=== PATIENT | female | born 1980 | race Caucasian/White ===

== ENCOUNTER 2017-07-29 20:47 | Emergency (ER) | payer OTHER ==
--- NOTE | 2017-07-29 22:07 | RAD ---
ABDOMEN ONE VIEW 07/29/17 HISTORY: Abdominal pain. FINDINGS/IMPRESSION: There is fecal material in the colon. The bowel gas pattern is unremarkable. There is dextroscoliosis of the lumbar spine. No suspicious calcifications are seen. POS: [facility]
[2017-07-29 22:14] LABS: Bilirubin Negative (Negative); Blood, Urine Negative (Negative); Clarity CLEAR (Clear); Glucose, Urine (Dipstick) Negative (Negative); Leukocyte Negative (Negative); Nitrite Negative (Negative); Protein, Urine (Dipstick) Negative (Neg-Trace); Urobilinogen 0.2 mg/dL (0.2-1.0)
[2017-07-29 22:25] LABS: #Basophils 0.1 thou/uL (0.0-0.2); #Eosinphils 0.1 thou/uL (0.0-0.7); #Lymphocytes 2.5 thou/uL (1.20-3.40); #Monocytes 0.7 thou/uL (0.11-0.59); #Neutrophils 4.8 thou/uL (1.40-6.50); %Basophils 0.8 % (0.0-1.0); %Eosinophils 1.5 % (0.0-10.0); %Lymphocytes 30.3 % (21.0-51.0); %Monocytes 8.4 % (0.0-10.0); %Neutrophils 58.9 % (42.0-75.0); Mean Corpuscular HGB CONC 32.4 g/dL (32.0-36.0); Mean Corpuscular Hemoglobin 31.4 pg (27.0-31.0); Mean Corpuscular Volume 96.9 fl (81.0-99.0); Mean Platelet Volume 6.7 fL (7.4-10.4); Platelet Count 236 thou/uL (130-400); RBC Distribution Width 11.8 % (11.5-14.5); Red Blood Cell (RBC) Count 4.13 mill/uL (4.20-5.40); White Blood Cell (WBC) Count 8.1 thou/uL (4.8-10.8)
[2017-07-29] MEDS ORDERED: Pantoprazole 40 MG VIAL ONE (22:41)
[2017-07-29] MEDS ORDERED: Ondansetron HCl/PF 4 MG/2 ML Vial ONE (22:41)
[2017-07-29 22:49] LABS: ALT (SGPT) 12 U/L (8-55); AST (SGOT) 20 U/L (5-34); Albumin 4.4 g/dL (3.5-5.0); Alkaline Phosphatase 65 U/L (40-150); Anion Gap 15 mmol/L (10-20); BUN (Urea Nitrogen) 10 mg/dL (7.0-18.7); Bilirubin, Total 0.4 mg/dL (0.2-1.2); Calc. Creatinine Clearance 0 mL/min (70-130); Calcium 9.3 mg/dL (7.8-10.44); Carbon Dioxide 21 mmol/L (22-29); Chloride 105 mmol/L (98-107); Estimated GFR-MDRD Greater than 90; Globulin 2.6 g/dL (2.4-3.5); Glucose 91 mg/dL (70-105); Lipase 44 U/L (8-78); Potassium 3.7 mmol/L (3.5-5.1); Sodium 137 mmol/L (136-145)
[2017-07-29] MEDS ORDERED: Magnesium Citrate 300 ML BOT ONE (23:15)
== END 2017-07-29 23:35 | disposition home or self-care (01) ==
LOC: ERS 20:47
DX: K59.00 Constipation, unspecified (principal); F84.0 Autistic disorder; Z79.899 Other long term (current) drug therapy
CPT/HCPCS: 36415; 51701; 74018; 80053; 81003; 83690; 85025; 96374; 96375; C9113; J2405

== ENCOUNTER 2018-02-07 10:06 | Emergency (ER) | payer OTHER ==
[2018-02-07 11:47] LABS: Bilirubin Negative (Negative); Blood, Urine Negative (Negative); Clarity CLEAR (Clear); Glucose, Urine (Dipstick) Negative (Negative); Leukocyte Negative (Negative); Nitrite Negative (Negative); Protein, Urine (Dipstick) Negative (Neg-Trace); Specific Gravity, Urine 1.024 (1.002-1.036); Urobilinogen 0.2 mg/dL (0.2-1.0); pH, Urine 6.5 (5.0-9.0)
== END 2018-02-07 12:56 | disposition home or self-care (01) ==
LOC: ERS 10:06
DX: Z13.89 Encounter for screening for other disorder (principal)
CPT/HCPCS: 51701; 81003; 87086; A4353

== ENCOUNTER 2018-06-20 06:39 | Outpatient (CLI) | payer OTHER ==
[2018-06-20 15:55] LABS: #Basophils 0.1 thou/uL (0.0-0.2); #Eosinphils 0.1 thou/uL (0.0-0.7); #Lymphocytes 2.3 thou/uL (1.20-3.40); #Monocytes 0.5 thou/uL (0.11-0.59); %Basophils 1.3 % (0.0-1.0); %Eosinophils 2.1 % (0.0-10.0); %Monocytes 8.3 % (0.0-10.0); %Neutrophils 50.3 % (42.0-75.0); Mean Corpuscular Hemoglobin 30.3 pg (27.0-31.0); Mean Corpuscular Volume 97.8 fL (78.0-98.0); Mean Platelet Volume 7.4 fL (7.4-10.4); Platelet Count 253 thou/uL (130-400); RBC Distribution Width 11.7 % (11.5-14.5); Red Blood Cell (RBC) Count 4.29 mill/uL (4.20-5.40)
[2018-06-20 16:20] LABS: ALT (SGPT) 13 U/L (8-55); AST (SGOT) 21 U/L (5-34); Albumin 4.1 g/dL (3.5-5.0); Alkaline Phosphatase 70 U/L (40-150); Anion Gap 15 mmol/L (10-20); BUN (Urea Nitrogen) 15 mg/dL (7.0-18.7); Bilirubin, Total 0.2 mg/dL (0.2-1.2); Calc. Creatinine Clearance 0 mL/min (70-130); Calcium 9.2 mg/dL (7.8-10.44); Carbon Dioxide 19 mmol/L (22-29); Chloride 109 mmol/L (98-107); Estimated GFR-MDRD Greater than 90; Globulin 2.8 g/dL (2.4-3.5); Glucose 87 mg/dL (70-105); Potassium 4.4 mmol/L (3.5-5.1); Protein, Total 6.9 g/dL (6.0-8.3); Sodium 139 mmol/L (136-145)
== END 2018-06-20 06:40 | disposition home or self-care (01) ==
LOC: LABBT 06:39
PROVIDERS: ATTEND Specialist
DX: Z01.812 Encounter for preprocedural laboratory examination (principal); K80.20 Calculus of gallbladder without cholecystitis without obstruction
CPT/HCPCS: 80053; 85025

== ENCOUNTER 2018-06-22 07:52 | Day surgery (SDC) | payer OTHER ==
--- NOTE | 2018-06-19 11:31 | HP ---
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 Parents believes it is due to abdominal pain. The patient has been seen at [facility]. The patient has a history of reflux. She has undergone ultrasound, revealed normal biliary tree and gallbladder sludge. HIDA scan was obtained and normal at [facility] on 04/30/2018. There are no laboratory results accompanying the records submitted. The patient does have a history of Rett syndrome, abdominal pain, GERD, constipation, dysphagia, thoracogenic scoliosis, and seizures. Plan is for laparoscopic video cholecystectomy hoping to resolve the patient's episodic discomfort. PAST MEDICAL HISTORY: Abdominal pain, Rett syndrome, GERD, constipation, dysphagia, thoracogenic scoliosis, and seizure disorder. The patient lives with her mother and father. 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 PAST SURGICAL HISTORY: Noncontributory except for wisdom teeth under sedation in the past. MEDICATIONS: 1. MiraLAX. 2. Calcium. 3. Multivitamins. 4. Ascorbic acid. 5. Nystatin. 6. Protonix. 7. Temazepam 7.5 mg at bedtime. 8. Vitamin D supplements. ALLERGIES: DIPHENHYDRAMINE, ADVERSE REACTIONS; HYDROCODONE CAUSES INSOMNIA. PHYSICAL EXAMINATION: VITAL SIGNS: 92 pounds, 4 feet 10 inches, BMI 19, blood pressure 105/75, heart rate 72, and temperature 99.7. GENERAL: The patient is in my exam room pacing about at times. LUNGS: Clear to auscultation. CARDIAC: Regular rate and rhythm without murmur or gallop. ABDOMEN: Soft, nontender, flat, nondistended. EYES: Sclerae nonicteric. SKIN: Nonjaundiced. EXTREMITIES: Unremarkable. No ankle edema. ASSESSMENT/PLAN: Symptomatic cholelithiasis. We would plan laparoscopic cholecystectomy as an outpatient. I think it would be better to get her home in her own environment. They live in [place]. Risk of infection, bleeding, and reoperation were explained. They consented. Job ID: [id number]
[2018-06-20 18:47] VITALS: BMI 19.2
[2018-06-22] MEDS ORDERED: Levofloxacin 500 mg/D5W 100 ml Premix Bag ONE (08:26)
[2018-06-22] MEDS ORDERED: Ketorolac Tromethamine 30 MG/ML VIAL ONE (08:27)
[2018-06-22] MEDS ORDERED: Bupivacaine HCl 0.5%/Epinephrine 1:200,000/PF 30 ml Vial ONE (08:51)
[2018-06-22] MEDS ORDERED: Fentanyl 100 MCG/2 ML VIAL ONE ×2 (09:45→09:59)
[2018-06-22] MEDS ORDERED: Lidocaine 2% Jelly 5 ML TUBE ONE (09:59)
[2018-06-22] MEDS ORDERED: Midazolam HCl 2 mg/2 ml Vial ONE (09:59)
--- NOTE | 2018-06-22 11:23 | OP ---
DATE OF PROCEDURE: 06/22/2018 PREOPERATIVE DIAGNOSES: Rett syndrome, cholecystitis, and cholelithiasis. POSTOPERATIVE DIAGNOSES: Rett syndrome, cholecystitis, and cholelithiasis. PROCEDURE PERFORMED: Laparoscopic video cholecystectomy. ANESTHESIA: General, 0.5% Marcaine with epinephrine 30 mL, total volume used. DESCRIPTION OF PROCEDURE: The patient was taken to the operating room, where under general anesthesia, abdomen was prepared with ChloraPrep and draped in routine fashion. Local anesthetic was infiltrated in the skin and subcutaneous tissue about each port site. Infraumbilical incision was made, pneumoperitoneum to 15 mmHg obtained with a Veress needle, replaced with a 5 port, laparoscope inserted. Right subxiphoid incision was made and 11 port placed. Right subcostal incision was made, midclavicular and anterior axillary lines and the 5 ports placed. Liver appeared to be normal. Gallbladder appeared to be normal externally. Fundus of the gallbladder was grasped at the cephalad. Infundibulum grasped and reflected laterally. Cystic artery and duct dissected free. Critical view obtained. Cystic artery and duct dissected free, doubly clipped and divided. Gallbladder dissected free from liver bed obtaining good hemostasis prior to division of the final attachments. Gallbladder and contents removed, submitted to Pathology. Good hemostasis ensured with cautery. Irrigant and pneumoperitoneum evacuated. All instruments were removed. All skin incisions were approximated with interrupted subdermal 4-0 Monocryl and Seama glue applied. Job ID: [id number]
== END 2018-06-22 12:15 | disposition home or self-care (01) ==
LOC: SDC 07:52
PROVIDERS: ATTEND Specialist
PROC: 0FT44ZZ Resection of Gallbladder, Percutaneous Endoscopic Approach (ICD-10-PCS; principal; 2018-06-22)
DX: K80.10 Calculus of gallbladder with chronic cholecystitis without obstruction (principal); F84.2 Rett's syndrome; K21.9 Gastro-esophageal reflux disease without esophagitis; K59.00 Constipation, unspecified; M41.30 Thoracogenic scoliosis, site unspecified; G40.909 Epilepsy, unspecified, not intractable, without status epilepticus; Z79.899 Other long term (current) drug therapy; Z88.5 Allergy status to narcotic agent; Z88.8 Allergy status to other drugs, medicaments and biological substances
CPT/HCPCS: 88304; J0131; J0670; J1610; J1885; J1956; J2250; J3010

== ENCOUNTER 2022-04-25 14:48 | Emergency (ER) | payer MEDICAID, OTHER, SELFPAY ==
[2022-04-25] MEDS ORDERED: LORazepam 2 MG/ML SYR.(CARPUJECT) ONE ×2 (18:10→22:43)
[2022-04-25 18:40] LABS: #Eosinphils 0.2 thou/uL (0.0-0.7); #Lymphocytes 3.1 thou/uL (1.20-3.40); #Monocytes 0.6 thou/uL (0.11-0.59); #Neutrophils 2.9 thou/uL (1.40-6.50); %Basophils 0.7 % (0.0-1.0); %Lymphocytes 45.5 % (21.0-51.0); %Monocytes 8.1 % (0.0-10.0); %Neutrophils 42.7 % (42.0-75.0); Hemoglobin 13.1 g/dL (12.0-16.0); Mean Corpuscular HGB CONC 32.9 g/dL (32.0-36.0); Mean Corpuscular Hemoglobin 32.6 pg (27.0-31.0); Mean Corpuscular Volume 99.2 fl (78.0-98.0); Mean Platelet Volume 7.4 fL (7.4-10.4); Platelet Count 232 10x3/uL (130-400); RBC Distribution Width 11.7 % (11.5-14.5); Red Blood Cell (RBC) Count 4.02 mill/uL (4.20-5.40); White Blood Cell (WBC) Count 6.9 10x3/uL (4.8-10.8)
[2022-04-25 18:48] LABS: BHCG - Serum Negative (NEGATIVE); Pregs Control Background? CLEAR/WHITE (CLR/WHITE); Pregs Control Bar Appear? YES (CONTROL BAR)
[2022-04-25 19:03] LABS: ALT (SGPT) 17 U/L (8-55); AST (SGOT) 18 U/L (5-34); Albumin 4.3 g/dL (3.5-5.0); Alkaline Phosphatase 56 U/L (40-110); Anion Gap 10 mmol/L (10-20); BUN (Urea Nitrogen) 16 mg/dL (7.0-18.7); Bilirubin, Total 0.4 mg/dL (0.2-1.2); Calc. Creatinine Clearance 0 mL/min (70-130); Calcium 9.1 mg/dL (7.8-10.44); Carbon Dioxide 26 mmol/L (22-29); Chloride 110 mmol/L (98-107); Estimated GFR 112; Globulin 2.5 g/dL (2.4-3.5); Glucose 90 mg/dL (70-105); Potassium 4.4 mmol/L (3.5-5.1); Protein, Total 6.8 g/dL (6.0-8.3); Sodium 142 mmol/L (136-145)
[2022-04-25 22:07] LABS: Bacteria/HPF None Seen HPF (None Seen); Bilirubin Negative (Negative); Blood, Urine 1+ (Negative); Clarity Clear (Clear); Glucose, Urine (Dipstick) Normal (Negative); Ketone, Urine Negative (Negative); Leukocyte 75 Leu/uL (Negative); Nitrite Negative (Negative); Protein, Urine (Dipstick) Negative (Neg-Trace); RBC/HPF 0-3 HPF (0-3); Specific Gravity, Urine 1.023 (1.002-1.036); Urobilinogen Normal mg/dL (Less than 2); WBC/HPF 0-3 HPF (0-3)
== END 2022-04-26 00:06 | disposition home or self-care (01) ==
LOC: ERS 14:48
DX: R41.82 Altered mental status, unspecified (principal); K59.00 Constipation, unspecified; N39.0 Urinary tract infection, site not specified; K21.9 Gastro-esophageal reflux disease without esophagitis
CPT/HCPCS: 36415; 51701; 70450; 74176; 80053; 81003; 81015; 84703; 85025; 87077; 87086; 87186; 96374; 96376; J2060